=== PATIENT | female | born 1930 | race Caucasian/White ===

== ENCOUNTER 2017-10-08 11:50 | Inpatient (IN) | payer OTHER ==
[~2017-10-08] VITALS: Ht 157.5 cm; Wt 47.5 kg
[2017-10-08 11:54] VITALS: BP 184/80
[2017-10-08] MEDS ORDERED: GLAUCOMA INTRAOCULR (12:01)
[2017-10-08 12:14] LABS: ABSOLUTE LYMPHOCYTES 0.8 thou/uL (0.8-5.3); ABSOLUTE MONOCYTES 0.5 thou/uL (0.0-1.2); ABSOLUTE NEUTROPHILS 5.1 thou/uL (1.6-8.1); BASOPHILS 0.5 %; EOSINOPHILS 0.5 %; HEMATOCRIT 40.3 % (37.0-47.0); HEMOGLOBIN 13.6 gm/dL (12.0-15.0); MCH 32.3 pg (26.0-34.0); MCHC 33.7 g/dL (28.0-37.0); MCV 95.9 fL (80.0-100.0); MONOCYTES 7.3 %; MPV 8.1 fl. (7.2-11.1); NUCLEATED RBCS 0 /100WBC; PLATELET COUNT* 204 thou/uL (150-400); POLYS 78.7 %; RDW-CV 13.5 % (10.5-14.5); WBC 6.5 thou/uL (4.0-11.0)
[2017-10-08 12:30] LABS: APTT 28.6 Seconds (25.0-31.3); PROTIME 10.1 Seconds (9.20-11.50)
[2017-10-08 12:33] LABS: ANION GAP 9 mmol/L (7-16); BUN 16 mg/dL (7-18); CHLORIDE 98 mmol/L (98-107); CO2 28 mmol/L (21-32); GLUCOSE 124 mg/dL (70-99); SODIUM 135 mmol/L (136-145)
[2017-10-08 12:38] LABS: INFLUENZA A ANTIGEN None Detected (None Detect); INFLUENZA B ANTIGEN None Detected (None Detect)
[2017-10-08 12:53] LABS: ALBUMIN 3.4 g/dL (3.4-5.0); ALKALINE PHOSPHATASE 98 U/L (46-116); CK-MB MASS < 0.5 ng/mL (<0.5-3.6); LIPASE 102 U/L (73-393); NT-PRO BRAIN NAT PEPTIDE 532 pg/mL (<300); SGOT 26 U/L (15-37); SGPT 18 U/L (30-65); TOTAL BILIRUBIN 0.8 mg/dL (<0.1-1.0); TOTAL PROTEIN 8.7 g/dL (6.4-8.2); TROPONIN-I LEVEL <0.06 ng/mL (<0.06)
[2017-10-08 14:04] VITALS: BP 159/68
[2017-10-08 14:10] VITALS: BP 140/67
[2017-10-08 16:03] VITALS: BP 107/56
[2017-10-08 20:00] VITALS: BP 132/61
[2017-10-09] VITALS: BP 138/61
[2017-10-09 00:32] LABS: HEMATOCRIT 36.3 % (37.0-47.0); HEMOGLOBIN 12.4 gm/dL (12.0-15.0); MCH 32.4 pg (26.0-34.0); MCHC 34.1 g/dL (28.0-37.0); MPV 8.2 fl. (7.2-11.1); RBC 3.82 mil/uL (4.20-5.00); RDW-CV 13.5 % (10.5-14.5); WBC 7.7 thou/uL (4.0-11.0)
[2017-10-09 01:05] LABS: ALBUMIN 2.9 g/dL (3.4-5.0); ALKALINE PHOSPHATASE 84 U/L (46-116); ANION GAP 11 mmol/L (7-16); BUN 18 mg/dL (7-18); CALCIUM 8.4 mg/dL (8.5-10.1); CHLORIDE 100 mmol/L (98-107); CO2 26 mmol/L (21-32); CREATININE 0.9 mg/dL (0.6-1.3); GLUCOSE 188 mg/dL (70-99); MAGNESIUM 2.2 mg/dL (1.8-2.4); SGOT 24 U/L (15-37); SGPT 16 U/L (30-65); SODIUM 137 mmol/L (136-145); TOTAL BILIRUBIN 0.3 mg/dL (<0.1-1.0); TOTAL PROTEIN 7.3 g/dL (6.4-8.2); TROPONIN-I LEVEL <0.06 ng/mL (<0.06)
[2017-10-09 04:00] VITALS: BP 131/62
[2017-10-09 08:00] VITALS: BP 138/65
--- NOTE | 2017-10-09 11:48 | EKG ---
[place] [address] ELECTROCARDIOGRAM REPORT Name: NICHOLE WHITING Room: [address] ADM IN M.R.#: [id number] Admission: 10/08/17 Attend Phys: Rajendra Morrison, Discharge: Date of : 32 Report #: [id number] THIS REPORT FOR: //name// [facility] ED Test Date: 2017-10-08 Test Time: 11:56:24 Pat Name: NICHOLE WHITING Department: Room: [address] Gender: F Residential Manager: Gissel PRICE : 1930 Requested By: Magnus Marvin Order Number: [id number] Reading MD: Don Eastman Measurements Intervals [place] Rate: 96 P: 54 [place]: 199 QRS: 16 QRSD: 84 T: 25 QT: 315 QTc: 398 Interpretive Statements Sinus rhythm Borderline ST depression, anterolateral leads No previous ECG available for comparison Electronically Signed On 10-09-2017 11:48:31 HOOKER OPERATOR by Don Eastman [email or web address] <ELECTRONICALLY SIGNED> By: Don Eastman MD, [facility] 10/09/17 1148 1156 1156 Don Eastman MD, [facility] /EPI
--- NOTE | 2017-10-09 11:49 | EKG ---
[place] [address] ELECTROCARDIOGRAM REPORT Name: NICHOLE WHITING Room: [address] ADM IN M.R.#: [id number] Admission: 10/08/17 Attend Phys: Rajendra Morrison, Discharge: Date of : 32 Report #: [id number] THIS REPORT FOR: //name// [facility] Test Date: 2017-10-08 Test Time: 17:59:31 Pat Name: NICHOLE JOHANNE Department: Room: [facility] Gender: F General Internal Medicine Physician: ANGELIC NOE : 1930 Requested By: Magnus Marvin Order Number: [id number] MD: Don Eastman Measurements Intervals [place] Rate: 73 P: 92 DE: 197 QRS: -17 QRSD: 80 T: -74 QT: 364 QTc: 401 Interpretive Statements Sinus rhythm Borderline left axis deviation Borderline repolarization abnormality No previous ECG available for comparison Electronically Signed On 10-09-2017 11:49:21 FRACTIONATING STILL OPERATOR by Don Eastman [email or web address] <ELECTRONICALLY SIGNED> By: Don Eastman MD, [facility] 10/09/17 1149 1759 1759 Don Eastman MD, FAC /EPI
--- NOTE | 2017-10-09 11:50 | EKG ---
[place] [address] ELECTROCARDIOGRAM REPORT Name: NICHOLE WHITING Room: [address] ADM IN M.R.#: [id number] Admission: 10/08/17 Attend Phys: Rajendra Morrison, Discharge: Date of : 32 Report #: [id number] THIS REPORT FOR: //name// [facility] Test Date: 2017-10-09 Test Time: 00:29:17 Pat Name: NICHOLE JOHANNE Department: Room: [address] Gender: F Atg Java Developer: VALERIA : 1930 Requested By: Magnus Marvin Order Number: [id number] Reading MD: Don Eastman Measurements Intervals [place] Rate: 65 P: 82 SD: 193 QRS: -1 QRSD: 76 T: 35 QT: 395 QTc: 411 Interpretive Statements Sinus rhythm No previous ECG available for comparison Electronically Signed On 10-09-2017 11:50:05 NUTRITION HELPER by Don Eastman [email or web address] <ELECTRONICALLY SIGNED> By: Don Eastman MD, [facility] 10/09/17 1150 002 Don Eastman MD, FACC /EPI
[2017-10-09 12:10] VITALS: BP 136/59
[2017-10-09 16:15] VITALS: BP 117/49
[2017-10-09 20:00] VITALS: BP 127/53
[2017-10-10] VITALS (7 sets, daily range): BP systolic 122–159; BP diastolic 60–88
[2017-10-10 13:08] LABS: IgG 492 mg/dL (700-1600); IgM 32 mg/dL (26-217)
[2017-10-10 14:09] LABS: IgA 1705 mg/dL (64-422)
[2017-10-10 17:13] LABS: GLYCOHEMOGLOBIN (HGB A1C) 5.4 % (4.8-5.6)
[2017-10-11] VITALS (7 sets, daily range): BP systolic 134–170; BP diastolic 60–105
[2017-10-11 05:15] LABS: HEMATOCRIT 34.2 % (37.0-47.0); HEMOGLOBIN 11.6 gm/dL (12.0-15.0); MCH 32.1 pg (26.0-34.0); MCV 94.5 fL (80.0-100.0); MPV 8.9 fl. (7.2-11.1); RBC 3.62 mil/uL (4.20-5.00); RDW-CV 13.3 % (10.5-14.5)
[2017-10-11 05:29] LABS: ALBUMIN 2.6 g/dL (3.4-5.0); CALCIUM 8.4 mg/dL (8.5-10.1); CREATININE 0.9 mg/dL (0.6-1.3); MAGNESIUM 2.5 mg/dL (1.8-2.4); POTASSIUM 4.8 mmol/L (3.5-5.1); TOTAL BILIRUBIN 0.2 mg/dL (<0.1-1.0); TOTAL PROTEIN 6.4 g/dL (6.4-8.2)
[2017-10-11] MEDS ORDERED: LEVAQUIN 500 M500 M2 PO (12:39)
[2017-10-11] MEDS ORDERED: PREDNISONE 20 M20 MG PO (12:39)
[2017-10-12] VITALS: BP 146/71
[2017-10-12 04:00] VITALS: BP 138/57
[2017-10-12 08:00] VITALS: BP 152/72
[2017-10-12] MEDS ORDERED: VENTOLIN HFA 1818 GM INH (10:16)
[2017-10-12] MEDS ORDERED: PROTONIX40 M1 PO (10:17)
[2017-10-12] MEDS ORDERED: CEFPODOXIME PR200 M1 PO (10:19)
[2017-10-12 12:00] VITALS: BP 138/80
== END 2017-10-12 13:40 | disposition home or self-care (01) | DRG 177 ==
LOC: M.ERS 11:50 → M.2W 12:45 → M.TBA-ER 12:45 → M.2W 14:28
PROVIDERS: Family Medicine; Internal Medicine; ADMIT Family Medicine
DX: J15.6 Pneumonia due to other Gram-negative bacteria (principal); J96.01 Acute respiratory failure with hypoxia; I10 Essential (primary) hypertension; J40 Bronchitis, not specified as acute or chronic; R73.9 Hyperglycemia, unspecified; Z88.8 Allergy status to other drugs, medicaments and biological substances